=== PATIENT | female | born 1970 | race Caucasian/White ===

== ENCOUNTER → 2019-04-09 | Outpatient (CLI) | payer OTHER ==
[2019-04-09 12:52] VITALS: BP 119/72; PULSE 80; RESP 16; TEMP 98.2; BMI 28.3
--- NOTE | 2019-04-09 13:23 | P.GSHP ---
History of Present Illness H&P Date: 04/09/19 Chief Complaint: Mammographic abnormality right breast Yamilka is a 48-year-old white female who underwent a routine screening mammogram was noted to have an area of concern in the right breast. The bilateral mammogram was performed on 02/04/2019. She then had additional views performed of the right breast and [id number]. On the additional view she was noted to have an area of coarse calcification in a linear arrangement in the lower 6 o'clock position for which stereotactic core biopsy was recommended. The patient does not feel anything of concern in her breast. She has no nipple discharge or skin changes. She has no history of any trauma or infection in her breast. Family history: 1. maternal grandfather: colon cancer 2. maternal 1/2 aunt: breast cancer Hormonal History: menarche: 12 , breast fed: no, age at : 19 periods: regular, LMP March 11 BCP: none hormones: none Surgical history: 1. Core biopsy of the left breast, spaced benign done in 2012 Medical history: 1.diabetes 2. asthma 3. irregular heart beat 4. leaking heart valve Social History: smoke: none alcohol: none drugs: none - Constitutional Constitutional: Reports fever, Reports sweats - EENT Comment: wears glasses, blurred vision with diabetes Eyes: bilateral blurred vision, bilateral pain Ears: bilateral: decreased hearing, tinnitus Ears, nose, mouth and throat: Reports headache - Breasts Breasts: bilateral: as per HPI - Cardiovascular Comment: leaking valve does not need antibiotics at dentist Cardiovascular: Reports irregular heart beat - Respiratory Comment: asthma - Gastrointestinal Comment: IBS Gastrointestinal: Reports constipation, Reports diarrhea - Genitourinary (Female) Comment: traces of protein in her urine Genitourinary: Denies dysuria, Denies hematuria - Menstruation Menstruation: Reports period normal - Musculoskeletal Comment: arthritis - Integumentary Comment: contact dermatitis Integumentary: Reports pruritus, Reports rash - Neurological Neurological: Reports numbness, Reports weakness - Psychiatric Comment: PMDD: anxiety, premenstrual dysphoric disorder - Endocrine Comment: diabetic - Hematologic/Lymphatic Comment: none - Allergic/Immunologic Allergic/Immunologic: Reports seasonal allergies Past Medical History Past Medical History: Asthma, Diabetes Mellitus Additional Past Medical History / Comment(s): Tachycardia, "leaky valve" History of Any Multi-Drug Resistant Organisms: None Reported Past Surgical History: Breast Surgery Additional Past Surgical History / Comment(s): Benign needle bx. left breast 2013 Past Anesthesia/Blood Transfusion Reactions: Motion Sickness Past Psychological History: Anxiety Additional Psychological History / Comment(s): Premenstrual anxiety Smoking Status: Never smoker Past Alcohol Use History: None Reported Past Drug Use History: None Reported Medications and Allergies Home Medications Medication Instructions Recorded Confirmed Type Cyanocobalamin (Vitamin B-12) 1,000 mcg PO DAILY 03/30/19 04/09/19 History [Vitamin B-12] FLUoxetine HCL [PROzac] 20 mg PO DAILY 03/30/19 04/09/19 History Fenofibrate [Lofibra] 54 mg PO DAILY 03/30/19 04/09/19 History Lisinopril [Zestril] 5 mg PO DAILY 03/30/19 04/09/19 History Magnesium Oxide [Mag-Ox] 400 mg PO DAILY 03/30/19 04/09/19 History Metoprolol Tartrate [Lopressor] 25 mg PO BID 03/30/19 04/09/19 History Omeprazole 20 mg PO DAILY 03/30/19 04/09/19 History Theophylline Anhydrous 300 mg PO DAILY 03/30/19 04/09/19 History [Theophylline] metFORMIN HCL 1,000 mg PO BID 03/30/19 04/09/19 History Allergies Allergy/AdvReac Type Severity Reaction Status Date / Time adhesive Allergy Rash/Hives Unverified 04/09/19 12:53 Latex, Natural Rubber Allergy Rash/Hives Unverified 04/09/19 12:52 codeine AdvReac Unknown Verified 04/09/19 12:53 Surgical - Exam Vital Signs Temp Pulse Resp BP Pulse Ox 98.2 F 80 16 119/72 96 04/09/19 12:46 04/09/19 12:46 04/09/19 12:46 04/09/19 12:46 04/09/19 12:46 BMI 28.3 - General well developed, well nourished, no distress - Eyes normal ocular movement - ENT no hearing loss, no congestion - Neck no masses, trachea midline - Respiratory normal respiratory effort, clear to auscultation - Cardiovascular Rhythm: regular Heart Sounds: normal: S1, S2 - Abdomen Abdomen: soft, non tender, no guarding, no rigid, no rebound - Integumentary normal turgor - Neurologic no disoriented, no combative - Musculoskeletal normal gait, normal posture - Psychiatric oriented to time, oriented to person, oriented to place, speech is normal, m emanuel intact Breast examination: Right breast: Multi-positional exam no dominant masses or nodules of concern Right axilla: No adenopathy of concern Left breast: Multi-positional exam no dominant masses or nodules of concern Left axilla: No adenopathy of concern Results Mammogram results reviewed Assessment and Plan Assessment: Impression: Medical history: 1.diabetes 2. asthma 3. irregular heart beat 4. leaking heart valve 5. Abnormal mammogram left breast 6. Family history of breast cancer and a half aunt 7. Family history of cancer Risks and benefits sterotactic core biopsy are discussed with the patient and her . They understand and wish to proceed with a right breast stereotactic core biopsy Plan: 1. Medical management of medical conditions 2. Right breast stereotactic core biopsy 2. Follow-up after stereotactic core biopsy CC: Dr. Ballard
== END ==
LOC: WWCWWP 13:00
PROVIDERS: ATTEND Surgery
DX: Z53.9 Procedure and treatment not carried out, unspecified reason (principal)

== ENCOUNTER → 2019-04-15 | Day surgery (SDC) | payer OTHER ==
[2019-04-15 07:29] VITALS: RESP 16; BMI 29.2
[2019-04-15 08:36] VITALS: BP 121/75; PULSE 84; TEMP 98.4
--- NOTE | 2019-04-15 09:38 | P.OP ---
Date of Procedure: 04/15/19 Preoperative Diagnosis: Mammographic abnormality right breast Postoperative Diagnosis: same Procedure(s) Performed: Stereotactic core biopsy right breast Anesthesia: local Surgeon: Ailyn Hopper Estimated Blood Loss (ml): 0 Pathology: other (breast tissue) Condition: stable Disposition: same day Indications for Procedure: Mammographic abnormality right breast Operative Findings: Microcalcifications in specimen Description of Procedure: The patient was taken to the stereotactic core biopsy room. Risk and benefits of the procedure have been discussed with the patient and she wished to proceed. The patient was positioned on the prone biopsy table. A plant taxonomist film was performed which identified the area of concern. The lesion was targeted. The breast was prepped using Betadine. 20 mL of 1% lidocaine were used to anesthetize the area of concern. A 9-gauge vacuum-assisted rotating core biopsy needle was inserted to the correct location. Prefire films were obtained which showed the needle was in the correct location. It was felt specimen could be obtained from the to 9:00 through the 6 o'clock position. The patient however in the process of taking the sample moved and therefore only 5 specimens were obtained. These were from the 3 to the 6 o'clock position with 2 samples being taken at the 6 o'clock position. Radiograph of the specimen revealed the area of concern had been removed. A secure james top Clip was placed and radiograph revealed this to be in the correct location. The patient tolerated the procedure in stable condition. The specimen was sent to pathology. The patient will follow-up with Dr. Taylor in 1 week.
--- NOTE | 2019-04-15 09:57 | MM ---
EXAMINATION TYPE: MG stereo VAD BX RT DATE OF EXAM: 04/15/2019 COMPARISON: Outside mammograms dated 02/04/2019, 02/19/2019 and 06/19/2012 CLINICAL HISTORY: Increasing calcifications in the lower outer quadrant of the right breast at anterior depth TECHNIQUE: Stereotactic guided core biopsy of right breast. FINDINGS: The procedure of stereotactic guided core biopsy was explained to the patient. Benefits, alternatives, and risks were discussed. An informed consent was then obtained. Preprocedural timeout was performed. The shortness pathway for biopsy was chosen. Shortness pathway was CC from below approach. I performed the localization (particularly of the posterior aspect of the linear right breast calcifications as these calcifications there are new from the prior of 2011), then surgeon, Dr. Brandon Toth performed the remainder of the procedure. A vacuum assisted biopsy gun was used to obtain multiple core samples. The patient tolerated the procedure well without any immediate complication. The patient was kept in the radiology department for short stay after the procedure and then discharged home in stable condition. Targeted calcifications are identified in specimen mammogram. Post biopsy mammogram shows the biopsy marker to appear in satisfactory position relative to the targeted area of concern on the preprocedure images. IMPRESSION: SUCCESSFUL, UNCOMPLICATED STEREOTACTIC GUIDED CORE BIOPSY OF AREA OF CONCERN IN THE RIGHT BREAST, FULL PATHOLOGY RESULTS TO FOLLOW. Pathology Results: Benign RIGHT BREAST LESION, NEEDLE CORE BIOPSY: Florid duct hyperplasia, nodular scar with calcifications and a background of fibrocystic spectrum changes. Coarse intraparenchymal and vascular mineralizations are identified. An appropriately controlled immunohistochemical study for E-cadherin and cytokeratin 5/6 show findings consistent with nonatypical duct hyperplasia. Recommendation Follow up mammogram of the right breast in 6 months. GIN
== END ==
LOC: RADMAMWWP 07:00
PROVIDERS: ATTEND Surgery
DX: N60.11 Diffuse cystic mastopathy of right breast (principal); N60.91 Unspecified benign mammary dysplasia of right breast; R92.1 Mammographic calcification found on diagnostic imaging of breast; R92.8 Other abnormal and inconclusive findings on diagnostic imaging of breast; Z88.5 Allergy status to narcotic agent; Z91.040 Latex allergy status
CPT/HCPCS: 88305; 88342; 88341; 19081; A4648; J2001

== ENCOUNTER → 2019-04-22 | Outpatient (CLI) | payer OTHER ==
--- NOTE | 2019-04-22 10:58 | P.PN ---
Subjective Progress Note Date: 04/22/19 Yamilka is a 48-year-old white female who underwent a routine screening mammogram was noted to have an area of concern in the right breast. The bilateral mammogram was performed on 02/04/2019. She then had additional views performed of the right breast and 53 119. On the additional view she was noted to have an area of coarse calcification in a linear arrangement in the lower 6 o'clock position for which stereotactic core biopsy was recommended. The patient does not feel anything of concern in her breast. She has no nipple discharge or skin changes. She has no history of any trauma or infection in her breast. She underwent a stereotactic core biopsy of the right breast and [id number]. Pathology was benign. Calcifications were identified. Family history: 1. maternal grandfather: colon cancer 2. maternal 1/2 aunt: breast cancer Hormonal History: menarche: 12 , breast fed: no, age at : 19 periods: regular, LMP March 11 BCP: none hormones: none Surgical history: 1. Core biopsy of the left breast, spaced benign done in 2012 Medical history: 1.diabetes 2. asthma 3. irregular heart beat 4. leaking heart valve Social History: smoke: none alcohol: none drugs: none - Constitutional Constitutional: Reports fever, Reports sweats - EENT Comment: wears glasses, blurred vision with diabetes Eyes: bilateral blurred vision, bilateral pain Ears: bilateral: decreased hearing, tinnitus Ears, nose, mouth and throat: Reports headache - Breasts Breasts: bilateral: as per HPI - Cardiovascular Comment: leaking valve does not need antibiotics at dentist Cardiovascular: Reports irregular heart beat - Respiratory Comment: asthma - Gastrointestinal Comment: IBS Gastrointestinal: Reports constipation, Reports diarrhea - Genitourinary (Female) Comment: traces of protein in her urine Genitourinary: Denies dysuria, Denies hematuria - Menstruation Menstruation: Reports period normal - Musculoskeletal Comment: arthritis - Integumentary Comment: contact dermatitis Integumentary: Reports pruritus, Reports rash - Neurological Neurological: Reports numbness, Reports weakness - Psychiatric Comment: PMDD: anxiety, premenstrual dysphoric disorder - Endocrine Comment: diabetic - Hematologic/Lymphatic Comment: none - Allergic/Immunologic Allergic/Immunologic: Reports seasonal allergies Past Medical History Past Medical History: Asthma, Diabetes Mellitus Additional Past Medical History / Comment(s): Tachycardia, "leaky valve" History of Any Multi-Drug Resistant Organisms: None Reported Past Surgical History: Breast Surgery Additional Past Surgical History / Comment(s): Benign needle bx. left breast 2013 Past Anesthesia/Blood Transfusion Reactions: Motion Sickness Past Psychological History: Anxiety Additional Psychological History / Comment(s): Premenstrual anxiety Smoking Status: Never smoker Past Alcohol Use History: None Reported Past Drug Use History: None Reported Objective - Constitutional General appearance: Present: average body habitus - EENT Eyes: Present: EOMI ENT: Present: hearing grossly normal - Respiratory Respiratory: bilateral: CTA - Cardiovascular Rhythm: regular Heart sounds: normal: S1, S2 - Integumentary Integumentary Comment(s): Biopsy site clean and dry right breast Mild ecchymosis near biopsy site, no hematoma Integumentary: Present: normal turgor Assessment and Plan Assessment: Impression: 1. Status post stereotactic core biopsy right breast, pathology benign 2. Diabetes 3. Asthma 4. Irregular heartbeat 5. Leaking heart valve Plan: 1. Repeat right breast mammogram and physician exam in 6 months 2. Medical management of medical conditions Cc: Dr. Ballard
[2019-04-22 10:59] VITALS: BP 118/66; PULSE 95; RESP 16; TEMP 98.2; BMI 28.3
== END | disposition home or self-care (01) ==
LOC: WWCWWP 10:43
PROVIDERS: ATTEND Surgery
DX: Z53.9 Procedure and treatment not carried out, unspecified reason (principal)